=== PATIENT | female | born 1985 | race Caucasian/White ===

== ENCOUNTER 2022-04-15 19:31 | Emergency (ER) | payer OTHER, SELFPAY ==
--- NOTE | 2022-04-15 | ECG_ITS ---
Test Reason : chest pain Blood Pressure : / mmHG Vent. Rate : 084 BPM Atrial Rate : 084 BPM P-R Int : 148 ms QRS Dur : 100 ms QT Int : 392 ms P-R-T Axes : 071 047 057 degrees QTc Int : 463 ms Normal sinus rhythm Possible Left atrial enlargement Borderline ECG When compared with ECG of 25-NOV-2012 15:03, QT has lengthened Referred By: Generic ED Physician Electronically Signed By:MARTITA BENITO
[2022-04-15 19:38] VITALS: BP 192/94; PULSE 71; RESP 18; TEMP 36.6; O2SAT 100; BMI 26.5
[2022-04-15 19:47] LABS: MANUAL DIFF FLAG NO
[2022-04-15 19:59] LABS: Basophils Percent Auto 0.1 % (0-2); Eosinophils Percent Auto 0.3 % (0-4); Hematocrit 38.2 % (37.0-47.0); Hemoglobin 13.7 g/dl (12.0-16.0); Imm Gran Abs Auto 0.02 X10*3/uL (0.00-0.03); Imm Gran Pct Auto 0.2 % (0.0-0.4); Lymphocytes Absolute Auto 3.4 X10*3/uL (1.2-4.9); Lymphocytes Percent Auto 35.4 % (20-40); Mean Corpuscular HGB Conc 35.9 g/dl (31.0-35.0); Mean Corpuscular Hemoglobin 31.2 pg (27.0-33.0); Monocytes Absolute Auto 0.8 X10*3/uL (0.1-1.2); Monocytes Percent Auto 8.4 % (2-11); Neutrophils Absolute Auto 5.4 x10*3/uL (2.0-8.3); Neutrophils Percent Auto 55.6 % (45-73); Platelet Count 336 X10*3/uL (160-400); Red Blood Count 4.39 X10*6/uL (4.20-5.50); Red Cell Distribution Width 12.3 % (11.0-16.0); White Blood Count 9.7 X10*3/uL (4.8-10.8)
[2022-04-15 20:13] LABS: Alanine Aminotransferase 11 U/L (0-31); Albumin Level 4.5 g/dL (3.5-5.0); Alkaline Phosphatase 69 U/L (39-117); Anion Gap 16 (12-20); Aspartate Amino Transferase 18 U/L (5-31); Bilirubin Total 2.6 mg/dL (0.0-1.0); Blood Urea Nitrogen 9 mg/dL (9-16); Calcium 11.7 mg/dL (8.4-10.2); Carbon Dioxide 24 mmol/L (22-29); Chloride 99 mmol/L (96-108); Creatinine Clr Calc Pharmacy 89.5; Estimated Glomerular Filt Rate > 60; Glucose Random 103 mg/dL (60-115); Potassium 3.4 mmol/L (3.3-5.1); Sodium 136 mmol/L (135-145); Total Protein 7.8 g/dL (6.5-8.0)
[2022-04-15 20:18] LABS: Troponin-I High Sensitivity < 3.5 ng/L (<3.5-17.0)
== END 2022-04-16 02:32 | disposition left against medical advice (07) ==
PROVIDERS: Emergency Provider Emergency Medicine
DX: R07.89 Other chest pain (principal); R06.02 Shortness of breath; I10 Essential (primary) hypertension; F17.200 Nicotine dependence, unspecified, uncomplicated
CPT/HCPCS: 36415; 80053; 84484; 85025; 93005; 99283

== ENCOUNTER 2022-04-17 10:41 | Emergency (ER) | payer OTHER, SELFPAY ==
--- NOTE | ~2022-04-17 | XR_ITS ---
EXAMINATION: XR CHEST CLINICAL INFORMATION: Cough and shortness of breath. COMPARISON: 04/10/2020 chest radiographs. TECHNIQUE: 2 views of the chest were obtained. FINDINGS: No significant abnormality is noted involving the heart, lungs, mediastinum, bony thorax or soft tissues. XR/XR chest 2V IMPRESSION: No acute cardiopulmonary process.
--- NOTE | 2022-04-17 10:46 | ECG_ITS ---
Test Reason : cp Blood Pressure : / mmHG Vent. Rate : 091 BPM Atrial Rate : 091 BPM P-R Int : 144 ms QRS Dur : 094 ms QT Int : 374 ms P-R-T Axes : 076 050 045 degrees QTc Int : 460 ms Normal sinus rhythm Normal ECG When compared with ECG of 15-APR-2022 19:32, No significant change was found Referred By: Generic ED Physician Electronically Signed By:MARTITA BENITO
[2022-04-17 10:47] VITALS: BP 187/96; PULSE 85; RESP 14; O2SAT 98; BMI 26.5
--- NOTE | 2022-04-17 11:04 | ED_ITS ---
HPI - Chest Pain General Chief Complaint: Chest Pain Stated Complaint: chest pain sob Time Seen by Provider: 04/17/22 11:02 Source: patient Mode of arrival: ambulatory Limitations: no limitations History of Present Illness MD complaint: chest pain Onset (ago): day(s) (Thursday ) Timing of current episode: constant Prior episodes: Yes Onset: during rest and during exertion Pain location: substernal Pain radiation: none Severity: moderate Quality: aching and heaviness Relieving factors: nothing Exacerbating factors: nothing Context: other (hx of chest pain for years, is on control) Associated symptoms: dyspnea Treatment prior to arrival: aspirin Related Data Previous Rx's Medication Instructions Recorded cyclobenzaprine 10 mg tablet 10 mg PO TID PRN #14 tab 04/17/22 Allergies Allergy/AdvReac Type Severity Reaction Status Date / Time No Known Allergies Allergy Unverified 08/16/20 15:46 none Allergy Unknown Uncoded 01/09/20 00:00 Review of Systems Review of Systems: Constitutional : No Weight loss, No Fever, No Chills ENT/Mouth : No sore throat, No Rhinorrhea Eyes: No Eye Pain, No Swelling Cardiovascular : pos Chest Pain, pos SOB, no Dyspnea on Exertion, No Orthopnea, No Edema, No Palpitations Respiratory : No Cough, No Sputum Gastrointestinal : no Nausea, No Vomiting, No Diarrhea, No abdominal Pain, No Hematochezia, No Melena Genitourinary : No Dysuria, No Urinary Frequency Musculoskeletal : No joint pain, No Myalgias, No Joint Swelling Skin : No Skin Lesions, No rash Neuro : No Weakness, No Numbness, No Dizziness, No Headache Psych : No Anxiety/Panic, No Depression Heme/Lymph: No Bruising, No Lymphadenopathy Endocrine : No Polyuria, No Polydipsia All other systems reviewed and are negative [facility] Past Medical History Attestation statement: The following information was validated with the patient. Medical History HTN (hypertension) Social History Social History (Updated 04/17/22 @ 11:36 by Cindy Cazares DO) Patient Tobacco Use Status: Current everyday Tobacco user Advance Directives: No Advance Directives Information Provided: No Physical Exam Vital Signs: Vital Signs: Last Vital Signs Pulse 65 04/17/22 12:36 Resp 18 04/17/22 12:36 BP 127/83 04/17/22 12:36 Pulse Ox 98 04/17/22 12:36 BMI result Body Mass Index 26.5 Appearance: Alert. Oriented X3. No acute distress. Eyes: Pupils equal, round and reactive to light. ENT: Pharynx normal. Neck: Normal inspection. Neck supple. CVS: Normal heart rate and rhythm. Pulses normal. Respiratory: No respiratory distress. Breath sounds normal. Abdomen: Soft and nontender. Skin: Skin warm and dry. Normal skin color. Normal skin turgor. Extremities: No lower extremity edema. No calf ttp Neuro: Oriented X 3. No motor deficit. No sensory deficit. Course Course Course Narrative: negative workup at this time BP down - stable for DC MDM - Chest Pain MDM Narrative Medical decision making narrative: 36 yo female with hx of HTN not on medications, uses BC patch, hx of chest pain the past told to change her diet, family has angina but no known CAD per her reports does not know about NV or stents/CABG in family. At this time has chest pain since thursday - will need EKG, troponin, ddimer given BC use. Monitor BP if it remains high will start on low dose medications. Seems atypical for ACS. Lab Data Result diagrams: 04/17/22 11:29 04/17/22 11:29 Labs: Lab Results 04/17/22 04/17/22 04/17/22 Range/Units 10:53 10:53 11:29 WBC 8.7 (4.8-10.8) X10*3/uL RBC 3.99 L (4.20-5.50) X10*6/uL Hgb 12.6 (12.0-16.0) g/dl Hct 35.5 L (37.0-47.0) % MCV 89.0 (80.0-98.0) fL MCH 31.6 (27.0-33.0) pg MCHC 35.5 H (31.0-35.0) g/dl RDW 12.3 (11.0-16.0) % Plt Count 270 (160-400) X10*3/uL MPV 10.2 (9.4-12.3) fL Immature Gran % (Auto) 0.5 H (0.0-0.4) % Neut % (Auto) 72.8 (45-73) % Lymph % (Auto) 18.1 L (20-40) % Randolph % (Auto) 8.1 (2-11) % Eos % (Auto) 0.2 (0-4) % Baso % (Auto) 0.3 (0-2) % Lymph # (Auto) 1.6 (1.2-4.9) X10*3/uL Randolph # (Auto) 0.7 (0.1-1.2) X10*3/uL Eos # (Auto) 0.0 (0.0-0.4) X10*3/uL Baso # (Auto) 0.0 (0.0-0.2) X10*3/uL Abs Immat Gran (auto) 0.04 H (0.00-0.03) X10*3/uL Absolute Neuts (auto) 6.4 (2.0-8.3) x10*3/uL Absolute Nucleated RBC 0.000 (0.0-0.012) X10*3/uL Nucleated RBC % (auto) 0.0 (0.0-0.2) /100WBC D-Dimer High Sensitivty NG/ML Sodium (135-145) mmol/L Potassium (3.3-5.1) mmol/L Chloride (96-108) mmol/L Carbon Dioxide (22-29) mmol/L Anion Gap (12-20) BUN (9-16) mg/dL Creatinine (0.5-1.4) mg/dL Estim Creat Clear Calc Estimated GFR Random Glucose (60-115) mg/dL Calcium (8.4-10.2) mg/dL Magnesium (1.6-2.6) mg/dL Total Bilirubin (0.0-1.0) mg/dL Direct Bilirubin (0.0-0.5) mg/dL AST (5-31) U/L ALT (0-31) U/L Alkaline Phosphatase (39-117) U/L Troponin I High Sens (<3.5-17.0) ng/L Total Protein (6.5-8.0) g/dL Albumin (3.5-5.0) g/dL COVID-19 (JOSEFINA) Negative (Negative) COVID-19 Clin Com See Note Influenza Type A (WILL) Negative (Negative) Influenza Type B (WILL) Negative (Negative) Influenza A & B Note See Note 04/17/22 04/17/22 04/17/22 Range/Units 11:29 11:29 11:29 WBC (4.8-10.8) X10*3/uL RBC (4.20-5.50) X10*6/uL Hgb (12.0-16.0) g/dl Hct (37.0-47.0) % MCV (80.0-98.0) fL MCH (27.0-33.0) pg MCHC (31.0-35.0) g/dl RDW (11.0-16.0) % Plt Count (160-400) X10*3/uL MPV (9.4-12.3) fL Immature Gran % (Auto) (0.0-0.4) % Neut % (Auto) (45-73) % Lymph % (Auto) (20-40) % Randolph % (Auto) (2-11) % Eos % (Auto) (0-4) % Baso % (Auto) (0-2) % Lymph # (Auto) (1.2-4.9) X10*3/uL Randolph # (Auto) (0.1-1.2) X10*3/uL Eos # (Auto) (0.0-0.4) X10*3/uL Baso # (Auto) (0.0-0.2) X10*3/uL Abs Immat Gran (auto) (0.00-0.03) X10*3/uL Absolute Neuts (auto) (2.0-8.3) x10*3/uL Absolute Nucleated RBC (0.0-0.012) X10*3/uL Nucleated RBC % (auto) (0.0-0.2) /100WBC D-Dimer High Sensitivty < 150 NG/ML Sodium 136 (135-145) mmol/L Potassium 4.2 D (3.3-5.1) mmol/L Chloride 103 (96-108) mmol/L Carbon Dioxide 24 (22-29) mmol/L Anion Gap 13 (12-20) BUN 10 (9-16) mg/dL Creatinine 0.71 (0.5-1.4) mg/dL Estim Creat Clear Calc 98.3 Estimated GFR > 60 Random Glucose 102 (60-115) mg/dL Calcium 9.8 D (8.4-10.2) mg/dL Magnesium 1.6 (1.6-2.6) mg/dL Total Bilirubin 1.1 H (0.0-1.0) mg/dL Direct Bilirubin 0.5 (0.0-0.5) mg/dL AST 15 (5-31) U/L ALT 9 (0-31) U/L Alkaline Phosphatase 58 (39-117) U/L Troponin I High Sens < 3.5 (<3.5-17.0) ng/L Total Protein 6.9 (6.5-8.0) g/dL Albumin 4.1 (3.5-5.0) g/dL COVID-19 (JOSEFINA) (Negative) COVID-19 Clin Com Influenza Type A (WILL) (Negative) Influenza Type B (WILL) (Negative) Influenza A & B Note ECG Data ECG #1: Attestation: I personally reviewed and interpreted this ECG as follows: ECG interpretation date: 04/17/22 ECG interpretation time: 11:06 Interpretation: Rate: 91 Rhythm: NSR [place]: normal Normal P waves. Normal SPENCER. Normal QRS complex. ST T wave : normal no KHUSHI qTC: normal prior studies: no acute ischemia The study has been interpreted contemporaneously by me. Discharge Plan Discharge Clinical Impression: Chest pain Qualifiers: Chest pain type: precordial pain Qualified Code(s): R07.2 - Precordial pain Patient Disposition: Home, Self-Care Instructions: Chest Pain (ED) Additional Instructions: return to ED for any worsening symptoms or concerns Prescriptions: New cyclobenzaprine 10 mg tablet 10 mg PO TID PRN (Reason: muscle spasm) Qty: 14 0RF Referrals: Lowell Lu MD [Physician] - 1 week Stand Alone Forms: Work/School Release
[2022-04-17 11:23] LABS: COVID-19 Test Negative (Negative); IDNOW Serial# 08D9AD1C
[2022-04-17 11:34] LABS: Influenza A Negative (Negative); Influenza B2 Negative (Negative)
[2022-04-17 11:38] LABS: MANUAL DIFF FLAG NO
[2022-04-17 11:39] LABS: Basophils Percent Auto 0.3 % (0-2); Eosinophils Percent Auto 0.2 % (0-4); Hematocrit 35.5 % (37.0-47.0); Hemoglobin 12.6 g/dl (12.0-16.0); Imm Gran Abs Auto 0.04 X10*3/uL (0.00-0.03); Imm Gran Pct Auto 0.5 % (0.0-0.4); Lymphocytes Absolute Auto 1.6 X10*3/uL (1.2-4.9); Lymphocytes Percent Auto 18.1 % (20-40); Mean Corpuscular HGB Conc 35.5 g/dl (31.0-35.0); Mean Corpuscular Hemoglobin 31.6 pg (27.0-33.0); Mean Platelet Volume 10.2 fL (9.4-12.3); Monocytes Absolute Auto 0.7 X10*3/uL (0.1-1.2); Monocytes Percent Auto 8.1 % (2-11); Neutrophils Absolute Auto 6.4 x10*3/uL (2.0-8.3); Neutrophils Percent Auto 72.8 % (45-73); Platelet Count 270 X10*3/uL (160-400); Red Blood Count 3.99 X10*6/uL (4.20-5.50); Red Cell Distribution Width 12.3 % (11.0-16.0); White Blood Count 8.7 X10*3/uL (4.8-10.8)
[2022-04-17 11:57] LABS: Alanine Aminotransferase 9 U/L (0-31); Albumin Level 4.1 g/dL (3.5-5.0); Alkaline Phosphatase 58 U/L (39-117); Anion Gap 13 (12-20); Aspartate Amino Transferase 15 U/L (5-31); Bilirubin Direct 0.5 mg/dL (0.0-0.5); Bilirubin Total 1.1 mg/dL (0.0-1.0); Blood Urea Nitrogen 10 mg/dL (9-16); Calcium 9.8 mg/dL (8.4-10.2); Carbon Dioxide 24 mmol/L (22-29); Chloride 103 mmol/L (96-108); Creatinine Clr Calc Pharmacy 98.3; Estimated Glomerular Filt Rate > 60; Glucose Random 102 mg/dL (60-115); Magnesium 1.6 mg/dL (1.6-2.6); Potassium 4.2 mmol/L (3.3-5.1); Sodium 136 mmol/L (135-145); Total Protein 6.9 g/dL (6.5-8.0)
[2022-04-17 11:59] LABS: D Dimer High Sensitivity < 150 NG/ML
[2022-04-17 12:03] LABS: Troponin-I High Sensitivity < 3.5 ng/L (<3.5-17.0)
[2022-04-17 12:36] VITALS: BP 127/83; PULSE 65; RESP 18; O2SAT 98
== END 2022-04-17 12:50 | disposition home or self-care (01) ==
PROVIDERS: Emergency Provider Emergency Medicine; PCP Internal Medicine
DX: R07.89 Other chest pain (principal); R06.02 Shortness of breath; F17.200 Nicotine dependence, unspecified, uncomplicated; Z71.6 Tobacco abuse counseling; Z20.822 Contact with and (suspected) exposure to COVID-19; Z79.899 Other long term (current) drug therapy
CPT/HCPCS: 36415; 71046; 80048; 80076; 83735; 84484; 85025; 85379; 87502; 87635; 93005; 99283; 99284

== ENCOUNTER → 2022-05-06 12:25 | Outpatient (BNVA) | payer OTHER, SELFPAY | PROVIDERS: PCP Internal Medicine; Referring Provider Internal Medicine; Visit Provider Internal Medicine | DX: R07.2 Precordial pain (principal) ==

== ENCOUNTER → 2022-06-27 13:52 | Outpatient (REF) | payer OTHER, SELFPAY ==
--- NOTE | 2022-06-27 13:54 | CA_ITS ---
Transthoracic Echocardiogram Patient (Last, First, Middle): Karen Salas A Gender: Female Date of : 1985 Age: 36 Procedure Date: 06/27/2022 Procedure Type: Transthoracic Echocardiogram Location: OP Height: 157.48 cm Weight: 63.5 kg BSA: 1.64 m2 Heart Rate: bpm BP: 122 / 90 mmHg Vision Impaired Teacher: TO Referring MD: Lowell Lu MD Symptoms: R07.2 - Precordial pain Study Quality: Adequate ECG Rhythm: Sinus Conclusions: - The left ventricular systolic function is normal. The calculated ejection fraction is 66% by biplane method. - No obvious valvular pathology seen on this study. Findings Left Ventricle Normal left ventricular cavity size. There is normal left ventricular wall thickness. The left ventricular systolic function is normal. The calculated ejection fraction is 66% by biplane method. There is no evidence of regional wall motion abnormalities. Diastolic function is normal for age. Right Ventricle Normal right ventricular cavity size and systolic function. Atria Both atria are normal in size. Aortic Valve There is a normal trileaflet aortic valve. There is no aortic valve stenosis. There is no aortic valve regurgitation. Mitral Valve The mitral valve appears normal. There is trace mitral valve regurgitation. There is no mitral valve stenosis. Pulmonic Valve The pulmonic valve is likely normal. Tricuspid Valve Normal tricuspid valve structure. There is trace tricuspid valve regurgitation. The pulmonary artery systolic pressure is normal. Great Vessels The aortic annulus, sinuses of valsalva, and asc aorta are normal in size. Venous The inferior vena cava is normal in size and collapses greater than 50% with inspiration. Pericardium/Pleural There is no evidence of pericardial effusion. Prior Study Comparison No prior study available for comparison. Recommendations, Care & Conclusions No obvious valvular pathology seen on this study. Measurements 2D Linear Measurements IVSd: 0.73 0.6-0.9/0.6-1.0 cm LVIDd: 4.72 3.9-5.3/4.2-5.9 cm LVIDd Index: 2.88 2.4-3.2/2.2-3.1 cm/m2 LVIDs: 3.34 2.0-3.6 cm LVPWd: 0.80 0.7-1.1 cm LA Diam: 2.80 2.7-3.8/3.0-4.0 cm LAIDs Index: 1.71 1.5-2.3 cm/m2 LV Mass: 144.67 67-162/88-224 g LV Mass Index: 88.21 43-95/49-115 g/m2 LVOT Diam: 2.00 3.0+(-)1.3 cm 2D Systolic Function EF 4C: 67.80 >55% EF 2C: 66.50 >55% EF BiP: 66.10 >55% Mitral Valve MV Pk E: 0.77 MV PK A: 0.66 MV Decel Time: 204.00 E/A: 1.20 E'Lateral: 15.70 E'Medial: 10.40 E/E' Med: 7.40 E/E' Lat: 4.90 PHT: 60.00 MVA PHT: 3.67 Decel Schleicher: 3.77 Aortic Valve AoV Pk Kolby: 1.26 AoV Mn Kolby: 0.87 AoV VTI: 0.26 AoV Pk Grad: 6.00 Aov Mn Grad: 3.00 TOOTIE Cont.VTI: 2.28 LVOT LVOT Pk Kolby: 1.07 LVOT Mn Kolby: 0.61 LVOT VTI: 0.19 LVOT Pk Grad: 5.00 LVOT Mn Grad: 2.00 LVOT Diam: 2.00 LVOT Area: 3.14 Diastolic Function MV Pk E: 0.77 MV Pk A: 0.66 E/A: 1.20 E'Medial: 10.40 E/E' Med: 7.40 E' Laterial: 15.70 E/E' Lat: 4.90 Right Ventricle TAPSE (mm): 29.40 TVS' Kolby: 13.30 Tricuspid Valve TR Pk Kolby: 2.08 TR Pk Grad: 17.00 RA Press: 3.00 RVSP: 20.00 Great Vessels Aorta Sinus of Valsalva: 3.37 2.0-3.[address] [place]: 2.48 1.7-3.4 cm Ao Asc: 3.20 2.1-3.4 cm Ao Arch: 2.70 Updated in Other Vendor System with Status of Final Lowell Lu MD electronically signed on 06/29/2022 11:25:57 AM with status of Final
== END ==
LOC: HO.CARD 13:52
PROVIDERS: Visit Provider Internal Medicine
DX: R07.2 Precordial pain (principal)
CPT/HCPCS: 93306

== ENCOUNTER 2022-08-01 08:20 | Outpatient (REF) | payer OTHER, SELFPAY ==
--- NOTE | ~2022-08-01 | US_ITS ---
EXAMINATION: US RETROPERITONEAL LIMITED (RENAL ONLY) RENAL ARTERY DUPLEX DOPPLER ULTRASOUND CLINICAL INFORMATION: Atherosclerosis of the renal artery. COMPARISON: MRI of 12/23/[address] of 06/15/2019. TECHNIQUE: Ultrasound along with color Doppler imaging and spectral analysis was performed of the kidneys. FINDINGS: RIGHT KIDNEY: 10.9 x 4.8 x 5.1 cm (SAG x AP x TRV). The kidney is normal in size, contour, and echogenicity. Renal cortical thickness is normal. No calculi or focal parenchymal lesions. No hydronephrosis. LEFT KIDNEY: 10.5 x 6.0 x 4.7 cm (SAG x AP x TRV). The kidney is normal in size, contour, and echogenicity. Renal cortical thickness is normal. No calculi or focal parenchymal lesions. No hydronephrosis. COLOR MAPPING AND SPECTRAL ANALYSIS: The peak systolic velocity within the mid abdominal aorta is 105 cm/s. Interrogation of the main renal artery demonstrates velocities (systolic/diastolic) as follows: Proximal Right: 162 cm/s. Mid Right: 165 cm/s. Distal Right: 139 cm/s. Proximal Left: 93.3 cm/s. Mid Left: 208 cm/s. Distal Left: 116 cm/s. Renal aortic artery ratios were not performed due to aortic velocity being greater than 100 cm/s. RESISTIVE INDICES SEGMENTAL: Right renal: Upper 0.67. Mid 0.67. Lower pole 0.56. SEGMENTAL RESISTIVE INDEX LEFT KIDNEY: Upper 0.66. Mid 0.67. Lower pole 0.70. Both renal veins are patent. US/US renal BI IMPRESSION: No evidence of hydronephrosis or medical renal disease. Elevated left mid renal artery velocity of 208 cm/s but without any other evidence of hemodynamically significant renal artery stenosis. Normal segmental resistive indices bilaterally.
--- NOTE | ~2022-08-01 | US_ITS ---
EXAMINATION: US RETROPERITONEAL LIMITED (RENAL ONLY) RENAL ARTERY DUPLEX DOPPLER ULTRASOUND CLINICAL INFORMATION: Atherosclerosis of the renal artery. COMPARISON: MRI of 12/23/[address] of 06/15/2019. TECHNIQUE: Ultrasound along with color Doppler imaging and spectral analysis was performed of the kidneys. FINDINGS: RIGHT KIDNEY: 10.9 x 4.8 x 5.1 cm (SAG x AP x TRV). The kidney is normal in size, contour, and echogenicity. Renal cortical thickness is normal. No calculi or focal parenchymal lesions. No hydronephrosis. LEFT KIDNEY: 10.5 x 6.0 x 4.7 cm (SAG x AP x TRV). The kidney is normal in size, contour, and echogenicity. Renal cortical thickness is normal. No calculi or focal parenchymal lesions. No hydronephrosis. COLOR MAPPING AND SPECTRAL ANALYSIS: The peak systolic velocity within the mid abdominal aorta is 105 cm/s. Interrogation of the main renal artery demonstrates velocities (systolic/diastolic) as follows: Proximal Right: 162 cm/s. Mid Right: 165 cm/s. Distal Right: 139 cm/s. Proximal Left: 93.3 cm/s. Mid Left: 208 cm/s. Distal Left: 116 cm/s. Renal aortic artery ratios were not performed due to aortic velocity being greater than 100 cm/s. RESISTIVE INDICES SEGMENTAL: Right renal: Upper 0.67. Mid 0.67. Lower pole 0.56. SEGMENTAL RESISTIVE INDEX LEFT KIDNEY: Upper 0.66. Mid 0.67. Lower pole 0.70. Both renal veins are patent. US/US renal doppler IMPRESSION: No evidence of hydronephrosis or medical renal disease. Elevated left mid renal artery velocity of 208 cm/s but without any other evidence of hemodynamically significant renal artery stenosis. Normal segmental resistive indices bilaterally.
== END 2022-08-01 08:21 | disposition home or self-care (01) ==
LOC: HO.US 08:20
PROVIDERS: Visit Provider Internal Medicine
DX: I70.1 Atherosclerosis of renal artery (principal)
CPT/HCPCS: 76775; 93975

== ENCOUNTER 2024-04-11 15:52 | Outpatient (AMB) | payer OTHER, SELFPAY ==
[2024-04-11 15:54] VITALS: BP 142/90; PULSE 80; O2SAT 98; BMI 25.8
--- NOTE | 2024-04-11 15:54 | A.OFFPC_ITS ---
Vital Signs 04/11/24 15:54 Height 5 ft 2 in Weight 141 lb BMI 25.8 BP 142/90 H Blood Pressure Location Lt brachial Position Sitting Pulse 80 Pulse Source Pulse Oximeter Pulse Oximetry (%) 98 Oxygen Delivery Method Room Air Intake Visit Reasons: BP F/U Allergies No Known Allergies Allergy (Verified 04/11/24 15:55) Tobacco use date assessed: 04/11/24 Dental Screening Dental Screen Date: 04/11/24 Did you have a dental visit in the last 12 months?: Yes Did you have a dental problem in the last 6 months where you did not have access to dental care?: No Was dental information given to patient?: Patient has dentist HPI BP F/U HPI Details 38-year-old female smoker with hypertens ion GERD last seen in July 2022. Patient is here for follow-up concern about elevated blood pressure before and advised to monitor blood pressure. BP high here, at home- states mostly high, mari snot been taking BP med. decline counselling due to financial PFSH Medical History (Updated 04/11/24 @ 16:12 by Bob Richardson MD) HTN (hypertension) Surgical History No pertinent past surgical history Family History (Updated 08/29/22 @ 11:39 by Bob Richardson MD) Father Angina pectoris Hypertension Substance abuse Mother No problems noted. Paternal Uncle H/O heart bypass surgery Paternal Aunt Ovarian cancer Sister Substance abuse Bipolar 1 disorder Social History (Updated 08/29/22 @ 11:40 by Bob Richardson MD) Housing: Apartment Alcohol intake: current Patient Tobacco Use Status: Current everyday Tobacco user Tobacco use type: Cigarette Cigarettes Per Day: 8 Years Smoked: stopped April 2022 e-Cigarette/Vaping Use: Never Used Second Hand Smoke Exposure: Yes service: No Current occupational status: employed Cognitive needs: No Hearing needs: No Vision needs: No Questionnaire PHQ-9 Over the last 2 weeks, how often have you been bothered by any of the following problems? 1. Little interest or pleasure in doing things: not at all 2. Feeling down, depressed, or hopeless: not at all 3. Trouble falling or staying asleep, or sleeping too much: not at all 4. Feeling tired or having little energy: not at all 5. Poor appetite or overeating: not at all 6. Feeling bad about yourself - or that you are a failure or have let yourself or your family down: not at all 7. Trouble concentrating on things, such as reading the newspaper or watching television: not at all 8. Moving or speaking so slowly that other people could have noticed. Or the opposite - being so fidgety or restless that you have been moving around a lot more than usual: not at all 9. Thoughts that you would be better off or of hurting yourself in some way: not at all Total score: 0 Depression Screening Interpretation: Negative Depression Screening Done: Yes Source: Developed by Drs. Michael Mcghee, Maranda Bowman, Zohaib Saucedo and colleagues, with an educational myra from [employer]. Thrive Questionnaire Date Thrive assessed: 04/11/24 I am a: Patient What is your living situation today?: I have a steady place to live Within the past 12 months, did the food you bought not last and you didn't have the money to get more?: Never true Within the past 12 months, did you worry whether your food would run out before you got money to buy more?: Never true Do you have trouble paying for medicines?: No Do you have trouble getting transportation to medical appointments?: No Do you have trouble paying your heating and electricity bill?: No Do you have trouble taking care of your child, family member or friend?: No Do you have trouble with day-to-day activities such as bathing, preparing meals, shopping, managing finances, etc.?: No Are you currently unemployed and looking for a job?: No Are you interested in more education?: No Currently or been in a relationship where the following occur: no concerns reported THRIVE Score: 0 AUDIT C Alcohol Use Questionnaire (AUDIT-C) 1. How often do you have a drink containing alcohol?: 2-4 times a month 2. How many drinks containing alcohol do you have on a typical day when you are drinking?: 3 or 4 3. How often do you have six or more drinks on one occasion?: Never Total Score: 3 VIDYA-7 AMB Questionnaire VIDYA-7 Date VIDYA - 7 assessed: 04/11/24 Feeling nervous, anxious, or on edge: 0 = Not at all Not being able to stop or control worryin = Not at all Worrying too much about different things: 0 = Not at all Trouble relaxin = Not at all Being so restless that it is hard to sit still: 0 = Not at all Becoming easily annoyed or irritable: 0 = Not at all Feeling afraid as if something awful might happen: 0 = Not at all Total VIDYA-7 score (0-4 normal; 5-9 mild; 10-14 moderate; 15-21 severe): 0 Source: Developed by Drs. Michael Mcghee, Maranda Bowman, Zohaib Saucedo and colleagues, with an educational myra from [employer]. Physical exam (Primary Care) Vital Signs: Last Vital Signs Pulse 80 04/11/24 15:54 BP 142/90 H 04/11/24 15:54 Pulse Ox 98 04/11/24 15:54 Oxygen Delivery Method Room Air 04/11/24 15:54 BMI result Body Mass Index 25.8 Tobacco/Smoking Status: Tobacco use Status Tobacco use date assessed 04/11/24 04/11/24 16:00 Patient Tobacco Use Status Current everyday Tobacco 04/11/24 16:00 Tobacco use type Cigarette 04/11/24 16:00 e-Cigarette/Vaping Use Never Used 04/11/24 16:00 PHQ-9: PHQ-9 Score PHQ-9: Total score 0 04/11/24 16:00 Depression Screening Interpretation: Negative Thrive Assessment: Date of Thrive Assessment Date Thrive assessed 04/11/24 04/11/24 16:00 Currently or been in a relationship where the following occur: no concerns reported Const General: alert; No acute distress Eyes Conjunctivae: conjunctivae normal Resp Auscultation: clear to auscultation bilaterally Cardio Rate: regular rate Rhythm: regular rhythm GI Inspection: Yes normal to inspection Extrem General: Yes normal to inspection and No edema Assessment and Plan Assessment & Plan (1) Essential hypertension: Code(s): I10 - Essential (primary) hypertension Plan: Advised continue monitoring blood pressure. Low-salt diet (2) GERD (gastroesophageal reflux disease): Code(s): K21.9 - Gastro-esophageal reflux disease without esophagitis Qualifiers: Esophagitis presence: without esophagitis Qualified Code(s): K21.9 - Gastro-esophageal reflux disease without esophagitis Plan: Avoid the foods that causes that usually spicy foods, tomato products, juices, coffee, soda and foods that your sensitive to. After eating do not lie down, allow 3-4 hours before in lie down. And keep the head of bed above 30 degrees to avoid the acid from going up. (3) Generalized anxiety disorder: Code(s): F41.1 - Generalized anxiety disorder (4) Tobacco dependence: Comment: stopped April 2022 still smoking 03/2024 Code(s): F17.200 - Nicotine dependence, unspecified, uncomplicated Plan: discussed about stopping smoking. Orders: Orders Comprehensive Met. Panel Today I10 - Essential (primary) hypertension Lipid Panel Today E78.00 - Pure hypercholesterolemia, unspecified, I10 - Essential (primary) hypertension Complete Blood Count Auto Diff Today I10 - Essential (primary) hypertension Thyroid Stimulating Hormone Today I10 - Essential (primary) hypertension Free T4 (Free Thyroxine) Today I10 - Essential (primary) hypertension Vitamin B12 and Folate Today I10 - Essential (primary) hypertension Vitamin D 25-OH Total Today I10 - Essential (primary) hypertension Medications: New paroxetine HCl (Paxil) 10 mg PO DAILY 30 tabs 2RF F41.1 - Generalized anxiety disorder Refilled hydrochlorothiazide 12.5 mg PO DAILY 90 tabs 1RF I10 - Essential (primary) hypertension amlodipine Patient must call and schedule cardiology appt for refills 2.5 mg PO DAILY 90 tabs 0RF I10 - Essential (primary) hypertension Coding Level of Care Code Est Pt Level 4 (88452) Diagnoses Essential hypertension I10 Gastroesophageal reflux disease without esophagitis K21.9 Esophagitis presence: without esophagitis Generalized anxiety disorder F41.1 Tobacco dependence F17.200
== END 2024-04-11 16:17 | disposition home or self-care (01) ==
PROVIDERS: PCP Internal Medicine; Visit Provider Internal Medicine
DX: I10 Essential (primary) hypertension (principal); K21.9 Gastro-esophageal reflux disease without esophagitis; F41.1 Generalized anxiety disorder; F17.200 Nicotine dependence, unspecified, uncomplicated
CPT/HCPCS: 99214